=== PATIENT | male | born 1965 | race Caucasian/White ===

== ENCOUNTER 2023-10-30 04:03 | Day surgery (SDC) | payer OTHER ==
[2023-10-30] VITALS (200 sets, daily range): BP systolic 94–148; BP diastolic 47–83
[~2023-10-30] VITALS: Ht 177.8 cm; Wt 99.8 kg
--- NOTE | 2023-10-30 07:00 | NUR ---
Patient arrived to the [facility] suite, identification and demographics confirmed. Patient to room 10, AAO and ambulatory vitals obtained, ID/allergy/fall bands placed, changed into hospital gown, procedure and timeline explained. All questions answered, patient presents no concerns at this time. Dr. Alcantar telephoned with patient intake information including usage, dose, last dose/time taken and initial vital signs. Patient history and allergies reviewed with MD. Orders received for 10 mg PO Valium and 0.3 mg PO Clonidine now. Will reassess per protocol in 1.5 hours and update MD with assessment and vitals.
[2023-10-30] MEDS ORDERED: cloNIDine HCL 0.1 MG/TAB PO PRN (07:30)
[2023-10-30] MEDS ORDERED: ALBUTEROL SULFATE 2.5 MG VIAL IN PRN (07:30)
[2023-10-30] MEDS ORDERED: diazePAM 5 MG/TAB PO PRN ×2 (07:30→08:30)
[2023-10-30] MEDS ORDERED: SCOPOLAMINE 1.5 MG DIS TD PRN (07:30)
[2023-10-30] MEDS ORDERED: PANTOPRAZOLE SODIUM Sesquihydr 40 MG/TAB PO PRN (07:30)
[2023-10-30] MEDS ORDERED: LACTATED RINGER'S 1,000 ML IV PRN ×3 (07:30→19:00)
[2023-10-30] MEDS ORDERED: FAMOTIDINE 20 MG/TAB PO PRN (07:30)
[2023-10-30] MEDS ORDERED: CYANOCOBALAMIN 500 MCG/TAB ( B12) PO PRN (07:30)
[2023-10-30] MEDS ORDERED: ASCORBIC ACID 4,000 MG in SODIUM CHLORIDE 0.9% 1,000 ML IV SCH (08:00)
[2023-10-30] MEDS ORDERED: ONDANSETRON HCl 4 MG/2 ML SDV IV PRN ×3 (08:30→19:00)
[2023-10-30] MEDS ORDERED: diazePAM 5 MG/TAB VT PRN (08:30)
[2023-10-30] MEDS ORDERED: THIAMINE HCL 100 MG/ML 2ML VIAL IV PRN (08:30)
[2023-10-30] MEDS ORDERED: LIDOCAINE HCL 1% (10MG/ML) 100 MG/10 ML MDV VT PRN ×2 (08:30)
[2023-10-30] MEDS ORDERED: SUCCINYLCHOLINE CHLORIDE 20 MG/ML 10ML VIAL IV PRN (08:30)
[2023-10-30] MEDS ORDERED: MAGNESIUM SULFATE HEPTAHYDRATE 100 ML IV PRN (08:30)
[2023-10-30] MEDS ORDERED: DEXAMETHASONE SODIUM PHOSPHATE PF 10 MG/ML SDV IV PRN ×2 (08:30→19:00)
[2023-10-30] MEDS ORDERED: cloNIDine HCL 0.1 MG/TAB VT PRN (08:30)
[2023-10-30] MEDS ORDERED: PROPOFOL 10 MG/ML 100ML VIAL IV PRN (08:30)
[2023-10-30] MEDS ORDERED: MIDAZOLAM HCL 2 MG/2 ML VIAL IV PRN (08:30)
[2023-10-30] MEDS ORDERED: OCTREOTIDE ACETATE 100 MCG/VIAL SDV SC PRN (08:30)
[2023-10-30] MEDS ORDERED: ROCURONIUM BROMIDE 10 MG/ML 5ML VIAL IV PRN (08:30)
[2023-10-30] MEDS ORDERED: cloNIDine HYDROCHLORIDE 100 MCG/ML 10 ML INJ IV PRN (08:30)
[2023-10-30] MEDS ORDERED: PROPOFOL 100 ML IV PRN (08:30)
[2023-10-30] MEDS ORDERED: DiphenhydrAMINE HCL 50 MG/ML SDV IV PRN (08:30)
[2023-10-30] MEDS ORDERED: LIDOCAINE HCL 1% (10MG/ML) 100 MG/10 ML MDV IV PRN (08:30)
[2023-10-30] MEDS ORDERED: NALTREXONE HCL 50 MG/TAB VT PRN (08:30)
[2023-10-30] MEDS ORDERED: STERILE WATER FOR IRRIGATION 1,000 ML BTL IR PRN (08:30)
[2023-10-30 08:35] LABS: ALBUMIN 4.3 g/dL (3.2-5.0); BILIRUBIN, TOTAL 0.6 mg/dL (0.2-1.3); CREATININE 0.8 mg/dL (0.7-1.3); POTASSIUM 4.1 mmol/l (3.5-5.1); TOTAL PROTEIN 6.8 g/dL (6.3-8.2)
[2023-10-30 08:39] LABS: BASO% 0.5 % (0-3); EOS% 0.5 % (0-8); HEMATOCRIT 40.5 % (39.0-50.0); HEMOGLOBIN 12.6 g/dl (14.0-18.0); IMMATURE GRANULOCYTES 0.8 % (0.0-5.0); LYMPH% 10.5 % (15-41); MEAN CELL VOLUME 88.6 fL CALC (80.0-100.0); MEAN CORPUSCULAR HGB 27.6 pG CALC (26.0-32.0); MEAN CORPUSCULAR HGB CONC 31.1 g/dL CAL (32.0-36.0); NEUT# 4.46 thou/uL (1.82-7.42); NEUT% 75.7 % (42-76); RED BLOOD COUNT 4.57 mill/uL (4.70-6.10); RED CELL DISTRI WIDTH 14.4 % (11.5-15.5)
[2023-10-30] MEDS ORDERED: PHENYLEPHRINE HCL 10 MG/ML VIAL ONE (08:42)
[2023-10-30] MEDS ORDERED: SODIUM CHLORIDE 0.9% 250 ML IV ONE (08:44)
[2023-10-30] MEDS ORDERED: POTASSIUM CHLORIDE 20 MEQ/100 ML BAG IV PRN (09:40)
--- NOTE | 2023-10-30 09:45 | NUR ---
Induction Note Patient to [facility]R procedure room. Time out performed at 0930. Patient placed on monitors, Deandre hugger, bilateral wrist restraints applied for ET tube protection. Versed 5mg given IV push at 932 Tourniquet applied to right arm Lidocaine 100mg given at933 IV push followed by Rocoronium 10mg at 934 IV push and held for 90 seconds. Propofol bolus of 130mg given at 935 IV push. Succinylcholine 80mg given IV push at 936. Smooth intubation with 7.5 ETT. Positive CO2. Positive Auscultation for air exchange. Patient placed on ventilator for spontaneous ventilation. Placed on Propofol IV drip at 937. OG inserted. Positive air on auscultation. Positive gastric content. Stomach washed at this time. Naltrexone 50mg given via OG tube with Clonidine 0.2 mg given via OG Tube. OG clamped for 45 minutes. Will monitor patient for symptoms of withdrawal and adjust propfol accordingly.
[2023-10-30] MEDS ORDERED: ALBUTEROL SULFATE 2.5 MG VIAL ONE ×2 (10:14→15:24)
--- NOTE | 2023-10-30 10:30 | NUR ---
OG open note OG open at this time. Gastric content draining into drainage bag. OG to drain for 45 minutes. Propofol will be titrated down based on patient.
--- NOTE | 2023-10-30 11:15 | NUR ---
OG close note Stomach washed at this time. Naltrexone 50 mg with Clonidine 0.2 mg via OG tube. OG will be clamped for 45 minutes.
--- NOTE | 2023-10-30 12:45 | NUR ---
OG close note Stomach washed at this time. Naltrexone 50 mg with Clonidine 0.1 mg via OG tube. OG will be clamped for 45 minutes.
[2023-10-30] MEDS ORDERED: KLONOPIN2 MG PO (13:12)
[2023-10-30] MEDS ORDERED: CLONIDINE0.1 MG PO (13:12)
[2023-10-30] MEDS ORDERED: NALTREXONE50 MG PO (13:12)
--- NOTE | 2023-10-30 16:05 | NUR ---
Extubation note Closing medications given Benadryl 50mg IV push, Decadron 10mg IV push,Magnesium 4 grams IV, Zofran 8mg IV push, Octreotide 100mcg SC. Stomach washed out prior to extubation. Suctioned gastric content. OG removed. Patient extubated. Propofol Discontinued. Wrist restraints removed. Deandre hugger Removed. See ANR Moderate sedate recovery record for further notes and assessment.
--- NOTE | 2023-10-30 17:21 | NUR ---
PATIENT ARRIVED TO [facility] FROM [facility] BESIDE REPORT GIVEN FROM RAGHAV; VITALS STABLE; 3L OF 02 PLACED IN MOUTH PATIENT A MOUTH BREATHER; EYE COVERING ALREADY IN PLACE; NO S.S OF DISTRESS AT THIS TIME; PERSONAL ITEMS IN ANR LOCKER; IV SITE CLEAN AND INTACT RUNNING WITH LR @100 IN RAC; CALL LIGHT WITHIN REACH, BED IN LOWEST POSTION; BED ALARM ACTIVATED
--- NOTE | 2023-10-30 17:38 | NUR ---
PATIENT ARRIVED TO [facility] FROM [facility]; PATIENT SLEEPING IN BED; WITH NON REBREATHER ON; PATIENT BREATHING HAVE LABORED BREATHING AT THIS TIME; VITALS IS STABLE; EYE COVERING ALREADY PLACED; BEDSIDE REPORT GIVEN FROM SONU; PERSONAL ITEMS IN ANR LOCKER; IV SITE CLEAN AND INTACT RUNNING WITH LR @100; NO S/S OF DISTRESS AT THIS TIME; CALL LIGHT WITHIN REACH, BED IN LOWEST POSTION; BED ALARM ACTIVATED
--- NOTE | 2023-10-30 17:48 | NUR ---
SPOKE TO PT'S SISTER AUGUST AND ADVISED OF PT'S CONDITION AND NEXT STEPS.
[2023-10-30] MEDS ORDERED: PROMETHAZINE HCL 12.5 MG in SODIUM CHLORIDE 0.9% 50 ML IV PRN (19:00)
[2023-10-30] MEDS ORDERED: PROMETHAZINE HCL 25 MG in SODIUM CHLORIDE 0.9% 50 ML IV PRN (19:00)
[2023-10-30] MEDS ORDERED: ACETAMINOPHEN 1,000 MG/100 ML VIAL IV PRN (19:00)
[2023-10-30] MEDS ORDERED: HALOPERIDOL LACTATE 5 MG/ML SDV IV PRN (19:00)
[2023-10-30] MEDS ORDERED: KETOROLAC TROMETHAMINE 30 MG/ML SDV IV PRN (19:00)
[2023-10-30] MEDS ORDERED: LORazepam 2 MG/ML IV PRN ×2 (19:00)
[2023-10-30] MEDS ORDERED: ACETAMINOPHEN 500 MG TAB PO PRN (19:00)
--- NOTE | 2023-10-30 19:45 | NUR ---
RECEIVED REPORT FROM DAYSHIFT NURSE NOAH CHAIDEZ. PT NOTED LAYING IN BED FOWLERS, CPAP IN PLACE. PT AROUSABLE TO SPEECH, PRESENTS DROWSY BUT ABLE TO FOLLOW COMMANDS. PT DENIES ANY P/N/V AT THIS TIME. CYTOTECHNOLOGIST SUPERVISOR ASSISTED COMMERCIAL ACCOUNT MANAGER WITH CHANGING PT DUE TO [employer]. PT WAS ABLE TO TURN WITH MINIMAL ASSISTANCE. CLEANED AND REPOSITIONED PT. VSS. NO S/S OF DISTRESS. IV SITE APPEARS HEALTHY AND INTACT WITH FLUIDS RUNNING PER EMAR. BED ALARM ON, COMMERCIAL ACCOUNT MANAGER AT DOORWAY AND SAFETY PRECAUTIONS IN PLACE.
--- NOTE | 2023-10-30 20:04 | NUR ---
RESPIRATORY THERAPY PLACED PT OFF CPAP AND PLACED ON VENTI MASK AT 15L O2. PT O2 SATURATION @94%
[2023-10-30] MEDS ORDERED: PATIENT' OWN MED CONTROLLED 1 EA DOSE IV PRN (21:00)
[2023-10-30] MEDS ORDERED: cloNIDine HCL 0.1 MG/TAB PO SCH (23:00)
[2023-10-30] MEDS ORDERED: clonazePAM 1 MG/TAB PO PRN (23:00)
--- NOTE | 2023-10-30 23:31 | NUR ---
PT LAYING IN BED SEMI FOWLERS WITH O2 MASK IN PLACE. PT IS AROUSABLE TO SPEECH AND ABLE TO MAKE BATHROOM NEEDS KNOWN AT THIS TIME. PT DENIES ANY P/N/V. ADMINSITERED SCHEDULED MEDICATIONS PER EMAR. PT TOLERATED WELL. ENCOURAGE REST AND RELAXTION. VSS. NO S/S OF DISTRESS. BED ALARM, PALAEONTOLOGIST AT DOORWAY AND SAFETY PRECAUTIONS IN PLACE.
--- NOTE | 2023-10-31 01:27 | NUR ---
RESPIRATORY THERAPY PLACED PT ON NASAL CANNULA AT 5L O2. PT TOLERATING WELL, O2 SATURATION AT 93%.
--- NOTE | 2023-10-31 03:20 | NUR ---
PT HAS NOTABLE SWELLING TO TOP LIP, HAS INCREASED IN SIZE OVER TIME. NO VISIBLE INJURY OR TRAUMA NOTED TO OUTSIDE OR INSIDE OF UPPER LIP. PT AIRWAY IS CLEAR, NO SWELLING OF TE TONGUE, AND NO SWELLING NOTED TO BOTTOM LIP. PT IS ABLE TO GIVE VERBAL RESPONSES AND DENIES ANY TINGLING, PAIN OR ABNORMAL FEELING TO LIP. NOTIFIED OF PT STATUS, TORB FOR MEDICAITON THAT HAS BEEN FAXED TO PHARMACY. AWAITNG VERIFICATION. PT IS CURRENTLY LAYING IN BED FOWLERS, NASAL CANNULA IN PLACE. NO S/S OF DISTRESS. BED ALARM ON AND SAFETY PRECAUTIONS IN PLACE.
[2023-10-31] MEDS ORDERED: methylPREDNISolone SODIUM SUCC 125 MG/2 ML SDV IV SCH (03:30)
[2023-10-31 03:48] VITALS: BP 113/78
[2023-10-31] MEDS ORDERED: clonazePAM 1 MG/TAB PO PRN ×2 (04:00→08:00)
[2023-10-31] MEDS ORDERED: cloNIDine HCL 0.1 MG/TAB PO PRN (04:00)
[2023-10-31] MEDS ORDERED: NALTREXONE HCL 50 MG/TAB PO SCH (04:00)
--- NOTE | 2023-10-31 04:45 | NUR ---
PT LAYING IN BED FOLWERS, NASAL CANNULA IN PLACE, RESTING COMFORTABLY. PTS SWELLING IN LIP HAS NOT INCREASED NOR DECREASED IN SIZE SINCE MEDICATION WAS ADMINISTERED. WILL CONTINUE TO MONITOR. VSS. NO S/S OF DISTRESS. BED ALARM ON AND SAFETY PRECAUTIONS IN PLACE.
[2023-10-31 05:30] LABS: BASO% 0.1 % (0-3); HEMATOCRIT 40.6 % (39.0-50.0); HEMOGLOBIN 12.7 g/dl (14.0-18.0); IMMATURE GRANULOCYTES 0.5 % (0.0-5.0); LYMPH% 5.6 % (15-41); MEAN CORPUSCULAR HGB 27.9 pG CALC (26.0-32.0); MEAN CORPUSCULAR HGB CONC 31.3 g/dL CAL (32.0-36.0); MONO% 7.8 % (2-13); NEUT# 10.99 thou/uL (1.82-7.42); RED BLOOD COUNT 4.56 mill/uL (4.70-6.10); RED CELL DISTRI WIDTH 14.3 % (11.5-15.5)
[2023-10-31 05:40] LABS: ALBUMIN 4.1 g/dL (3.2-5.0); BILIRUBIN, TOTAL 0.7 mg/dL (0.2-1.3); CREATININE 0.6 mg/dL (0.7-1.3); MAGNESIUM 2.4 mg/dL (1.6-2.3); POTASSIUM 4.2 mmol/l (3.5-5.1); TOTAL PROTEIN 6.6 g/dL (6.3-8.2)
[2023-10-31 08:00] VITALS: BP 142/83
[2023-10-31] MEDS ORDERED: PANTOPRAZOLE SODIUM Sesquihydr 40 MG/TAB PO SCH (08:00)
[2023-10-31] MEDS ORDERED: ACETAMINOPHEN 325 MG/TAB PO SCH (08:00)
[2023-10-31] MEDS ORDERED: cloNIDine HCL 0.1 MG/TAB PO SCH (08:00)
--- NOTE | 2023-10-31 08:40 | NUR ---
patient a/o x3; on 5l of 02; breathing unlabored; denied any pain; denied any n/d/v at this time; patient upper lip is swollen, denied any tingling or numbing feeling when asked; Dr. Doherty is aware; patient tolerated medication admin; encouraged to eat a light breakfast; no s/s of distress at this time; medication was reviewed; labs was within program range; call light within reach, verbalized understanding on how to use, personal items in ANR locker; bed in lowest postion; bed alarm actiavted
[2023-10-31] MEDS ORDERED: MAGNESIUM OXIDE 400 MG/TAB PO PRN (09:00)
[2023-10-31] MEDS ORDERED: ACETAMINOPHEN 500 MG TAB PO PRN (09:00)
[2023-10-31] MEDS ORDERED: Cholecalciferol 2,000 UNIT/TAB PO PRN (09:00)
--- NOTE | 2023-10-31 11:00 | NUR ---
patient had vomited all over himself and bedl when offered to give medication for it he denied stated he just felt overfull from [facility] fluids and breakfast; assited patient to bathroom and assited withshower; patient had steady gait; completed bed change; safety measures in place; assited patient back to bed; applied iv for fluids; bed in lowest postion; bed alarm actiavted
== END 2023-10-31 16:08 | disposition home or self-care (01) | DRG 897 ==
LOC: ANR 04:03 → MS2 04:10 → ANR 07:00 → MS2 17:09 → ANR 10-31 16:08
PROVIDERS: ATTEND Anesthesiology
DX: F11.20 Opioid dependence, uncomplicated (principal)
CPT/HCPCS: J1100; J2354; J3475; J3490

== ENCOUNTER 2023-11-02 10:04 | Emergency (ER) | payer BC ==
[2023-11-02] VITALS (8 sets, daily range): BP systolic 117–138; BP diastolic 74–88
[~2023-11-02] VITALS: Ht 177.8 cm; Wt 100.0 kg
[~2023-11-02 10:04] MED LIST: CLONIDINE0.1 MG PO; KLONOPIN2 MG PO; NALTREXONE50 MG PO
[2023-11-02 10:53] LABS: BASO% 0.3 % (0-3); IMMATURE GRANULOCYTES 0.5 % (0.0-5.0); LYMPH% 16.6 % (15-41); MEAN CELL VOLUME 85.9 fL CALC (80.0-100.0); MEAN CORPUSCULAR HGB 27.3 pG CALC (26.0-32.0); MEAN CORPUSCULAR HGB CONC 31.7 g/dL CAL (32.0-36.0); MONO% 12.6 % (2-13); NEUT# 5.25 thou/uL (1.82-7.42); RED BLOOD COUNT 5.76 mill/uL (4.70-6.10)
[2023-11-02 10:54] LABS: HEMATOCRIT 49.5 % (39.0-50.0); HEMOGLOBIN 15.7 g/dl (14.0-18.0)
[2023-11-02 11:04] LABS: ALBUMIN 4.9 g/dL (3.2-5.0); ALKALINE PHOSPHATASE 53 u/l (38-126); ANION GAP 12 (6-22 (CALC)); BILIRUBIN, TOTAL 0.8 mg/dL (0.2-1.3); BUN 13 mg/dL (9-20); BUN/CREATININE RATIO 18 (12-20 (CALC)); CARBON DIOXIDE 26 mmol/l (22-30); CHLORIDE 107 mmol/l (95-108); CREATININE 0.7 mg/dL (0.7-1.3); ESTIMATED GFR 107 ML/MIN (>=90 (CALC)); SGOT/AST 72 u/l (17-59); SODIUM 141 mmol/l (137-146)
[2023-11-02 11:05] LABS: TOTAL PROTEIN 8.4 g/dL (6.3-8.2)
[2023-11-02] MEDS ORDERED: BENZONATATE200 MG PO ×2 (11:41→12:16)
[2023-11-02] MEDS ORDERED: ZITHROMAX250 MG PO ×2 (11:41→12:16)
[2023-11-02] MEDS ORDERED: MEDROL DOSEPAK4 MG PO ×2 (11:41→12:16)
== END 2023-11-02 12:19 | disposition home or self-care (01) | DRG 203 ==
LOC: ED 10:04
PROVIDERS: Family Medicine
DX: J45.901 Unspecified asthma with (acute) exacerbation (principal); G47.33 Obstructive sleep apnea (adult) (pediatric); Z72.0 Tobacco use